=== PATIENT | female | born 1945 | race Caucasian/White ===

== ENCOUNTER → 2017-03-01 | Outpatient (CLI) | payer MEDICARE, OTHER ==
[~2017-03-01] MED LIST: ALLOPURINOL100 MG PO; PRADAXA150 MG PO; PRAVACHOL40 MG PO; TOPROL XL 5050 MG PO; TRIAMTERENE-HC1 EAC1 PO; TYLENOL EXTRA500 MG PO; ZYRTEC10 MG PO
== END | disposition disaster alternative care site (69) ==
LOC: GRAD 11:00
DX: M54.5 Low back pain (principal); M47.896 Other spondylosis, lumbar region; M48.06 Spinal stenosis, lumbar region; M43.8X6 Other specified deforming dorsopathies, lumbar region